=== PATIENT | female | born 1930 | race Caucasian/White ===

== ENCOUNTER 2016-05-25 22:53 | Emergency (ER) | payer MEDICARE ==
--- NOTE | 2016-05-25 23:45 | PHYS DOC ---
General Chief Complaint: MECHANICAL FALL Stated Complaint: FALL Time Seen by MD: 23:38 Source: patient, family, EMS Problems: History of Present Illness Initial Comments Patient here by EMS with daughter from detention for fall. As best we understanding, the patient was barely trying to get up and fell between her bed and the wall. The fall was not witnessed. It's unknown if she had any seizure activity loss of consciousness or incontinence. The patient doesn't believe that she did. She was unable to get up by herself and with assistance arrived, she was subsequently transported here for further care. Patient denies any antecedent symptoms of chest pain, shortness of breath, arrhythmia symptoms, change in vision or speech, or focal extremity or neurologic complaints. At this time, she's complained of pain over the left shoulder only. She has no headache. There's no vision or speech changes. She denies any neck or back pain. She has no chest pain or shortness of breath. There is no nausea vomiting or abdominal pain. There is no change amount or bladder habits no calmness. She denies any other focal extremity or neurologic complaints except as previously described. Patient normally gets up in her room without a walker, but uses a walker for any longer distances. As best we can tell this time, this seems to be a mechanical fall with the patient apparently slipped off the bed rather than a vertiginous, TIA, or syncopal type episode. Other than being brought here today by EMS for care there's been nothing done for this prior to arrival in the ER no fractures noted increase or decrease in symptoms the patient might have. Patient's past medical history is remarkable for dementia, diabetes, hypertension, hearing loss, and vision loss. She is a nonsmoker and nonuser user of ethanol. As noted, she lives in a local nursing facility. Her daughter believes her tetanus to be up-to-date. Allergies: Coded Allergies: No Known Drug Allergies (Unverified , 11/01/15) Past Medical History Medical History: dementia, diabetes, hypertension, other Social History Smoker: non-smoker Alcohol: none Review of Systems All Other Systems: Reviewed and Negative Physical Exam General Appearance: WD/WN, no apparent distress Eyes: bilateral eye EOMI, bilateral eye PERRL, bilateral eye normal inspection Ear, Nose, Throat: normal pharynx, other Neck: full range of motion, supple, normal inspection Respiratory: lungs clear, normal breath sounds, no respiratory distress Cardiovascular: regular rate, rhythm, no edema Gastrointestinal: non tender, soft, no organomegaly Back: no CVA tenderness, no vertebral tenderness Extremities: normal inspection, other Neurologic/Psychiatric: automation tender II-XII nml as tested, no motor/sensory deficits, alert, normal mood/affect Skin: normal color Lymphatic: no adenopathy Comments Generally this is an elderly white female in no acute distress. Vitals are as noted. Pertinent signs on physical exam shows the patient to have about a 2 cm diagonally oriented laceration of the right upper lip towards the midline. This does not appear to be through and through. The facial bones themselves appear to be stable. Pupils are equal reactive light accommodation. Extra ocular movements are intact. Ears and throat are clear. There is some dried red blood in the nares. The nose itself is nontender without deformities or step-offs. There is no active nosebleed. Neck shows no focal tenderness. There is no signs of trauma no tenderness about the cervical spine or the paraspinal regions. Chest is clear cardiovascular exam shows regular rate and rhythm without murmur. The abdomen is soft and nontender. Back shows no CVA tenderness. There is no signs of trauma and no bony vertebral pain. Externally show no rashes, sinus, or edema. Patient complains of pain diffusely about the left shoulder. There is no gross swelling or signs of trauma, no gross deformity noted. There is no distal motor sensory or vascular deficits noted within the left upper extremity. Neurologic exam finds the patient awake alert oriented to person only. This is baseline per daughter. Cranial nerves II through XII appear to be grossly intact. Strength 5 over 5 equal all sites tested, with some difficulty with testing due to lack of comprehension or hearing loss. There are no gross sensory deficits appreciated. She is initially not ambulated in the ED. Remainder of physical exam is clinically unremarkable. Orders, Labs, Meds Old charts note no prior ER visits within the current system. X-rays the left shoulder show an impacted fracture humeral head with some displacement of the lateral fragment per the emergency physician. CT scan of the head and maxillofacial bones per radiology shows chronic changes but no acute intracranial process. There is no definite facial fracture seen. CT of the cervical spine per radiology shows some mild degenerative disease, especially at C3-C4. There is no acute changes. 0135 Patient resting comfortably in the ED. I had discussed with the patient's daughter the need for wound closure. She voiced understanding. Given the patient 's dementia, she will probably be moving her head and moving her hands quite actively according the daughter, so after discussions determined to go ahead and sedate the patient very gently with some Versed. Following 1.5 mg of Versed , the patient was judged to be properly sedated. She was still respond to voice but was sleeping quite comfortably. Using sterile technique and 1% lidocaine without epinephrine anesthesia, the lip laceration was copiously irrigated with normal saline. Explored to find skin and subcutaneous tissue involvement only. It was fairly deep, but fourthly laceration is not through and through and there is no intraoral lesions. Lacerations, closed deeply with 2 sutures of 4-0 Vicryl to reapproximate the edges. Externally, the vermilion borders were approximated with a single suture of 4-0 nylon, and for additional sutures of 4- 0 nylon were used to close the remainder of the wound inferiorly towards the mucosa. Cosmetic result appears acceptable at this time. I discussed with the daughter home care of the laceration back to the detention. We'll advise him to keep it clean with soap and water, they can apply Vaseline to the area as needed for patient comfort, and advises that she have clear liquids for the next 48 hours to prevent any particular matter from kitchen in the wound. Sutures come out in about 5-7 days. While we're irrigating the wound, we will carefully use gauze to make sure that the patient did not aspirate fluids and also were aggressive suctioning. These were witnessed by the daughter. I did explain that there is a small risk of aspiration, and we'll ask the detention also to wash out closely for signs of respiration distress. Daughter is very familiar with this and says the patient is aspirating food on previous occasions. She voices understanding of this risk. We also discussed the impacted fracture of the left humeral head. At this time we'll treat the stricken with a sling. The patient barely had a previous fracture of the right shoulder with total shoulder replacement, and really did not do well, and the daughter would not like to have surgery on the patient from the left side. Provided reassurance that often this is a nonsurgical fracture, but the last follow-up with orthopedics in several days' time for recheck. She voices understanding of this caution as well. She would like us to prescribe the patient's medication for pain. We'll give her dose here as well as a prescription for Lortab elixir there is no. We'll also give her an initial dose of Augmentin here and Augmentin for home to rule out wound infection of a wound it's likely contaminate with saliva. Daughter voiced understanding these follow- up instructions, as well as the need to return to the ER sooner as needed for worsening anyway. There are is extremely medically aware and I think will continue to supervise excellent care of the patient at the nursing facility. Patient herself looks comfortable, in no acute discomfort distress, with her laceration closed is splinting applied to her left upper extremity, and okay for discharge back to her nursing facility. MARIANA PALMA MD May 25, 2016 23:45
--- NOTE | 2016-05-26 00:33 | RAD ---
CT head and cervical spine: Fall with head and neck pain. Axial imaging through the brain and cervical spine was performed without contrast. Sagittal and coronal reformations were also performed. PQRS STATEMENT One or more of the following individualized dose reduction techniques were utilized for this study: 1.Automated exposure control. 2.Adjustment of the mA and/orkVaccording to patient size. 3.Use of iterative reconstruction technique. No prior studies available for comparison. CT brain: The ventricles and sulci are consistent with the patient's age. There is significant periventricular hypodensity noted consistent with senescent change. No sulcal effacement is seen. No midline shift is identified. No acute intra-axial or extra-axial hemorrhage is detected. The cisterns are patent. There appears to be some gas in the left pre maxillary soft tissues. No definite fracture is seen however. Impression: Chronic and senescent changes. No acute intracranial process is detected. There is mucosal thickening of the paranasal sinuses and gas in the left pre maxillary soft tissues. No definite facial fracture is seen however. CT cervical spine: Curvature is normal. Minimal retrolisthesis C3 on C4 is noted. There is C3-4 degenerative disc disease noted. No fractures are identified. The odontoid is intact. The prevertebral tissues are normal. Impression: No acute bony abnormality is detected. Electronically signed by: Rajan Mahajan MD (May 26, 2016 00:31:34)
--- NOTE | 2016-05-26 00:35 | RAD ---
CT facial bones without contrast Indication: Fall with facial abrasions. Axial imaging through the facial bones was performed with without contrast. Sagittal and coronal reformations were also performed. PQRS STATEMENT One or more of the following individualized dose reduction techniques were utilized for this study: 1.Automated exposure control. 2.Adjustment of the mA and/orkVaccording to patient size. 3.Use of iterative reconstruction technique. The mandible appears intact. The zygomatic arches are intact. There is mucosal thickening involving bilateral maxillary sinuses but maxillary sinus zavala appear to be intact. There is some gas in the left pre maxillary soft tissues, suggestive of a laceration. The nasal bones are intact. The orbital zavala appear to be intact. There is opacification of multiple ethmoid air cells and mucosal thickening of the sphenoid sinus. Impression: The left pre maxillary soft tissue gas suggestive of a laceration. No facial bone fracture is detected. Electronically signed by: Rajan Mahajan MD (May 26, 2016 00:34:12)
[2016-05-26] MEDS ORDERED: ONDANSETRON PF 4 MG/2 ML VIAL. IV ONE (01:00)
[2016-05-26] MEDS ORDERED: MIDAZOLAM HCL 5 MG/5 ML VIAL ONE (01:02)
[2016-05-26] MEDS ORDERED: LIDOCAINE 1% Multi-Dose 20 ML VIAL. ONE (01:06)
[2016-05-26 01:30] VITALS: BP 156/77
[2016-05-26] MEDS ORDERED: ONDANSETRON PF 4 MG/2 ML VIAL. ONE (01:38)
[2016-05-26] MEDS ORDERED: AMOXICILLIN/K CLAV 875/125MG TABLET. PO ONE (02:00)
[2016-05-26] MEDS ORDERED: HYDROcodon/APAP 7.5/325MG ORAL 15 ML SOLUTION PO ONE (02:00)
[2016-05-26] MEDS ORDERED: MIDAZOLAM HCL 5 MG/5 ML VIAL IV ONE (02:15)
[2016-05-26] MEDS ORDERED: LIDOCAINE 1% Multi-Dose 20 ML VIAL. IJ ONE (02:30)
--- NOTE | 2016-05-26 07:17 | RAD ---
Left shoulder, 3 views, 05/26/2016: History: Injury The bony structures are demineralized. There is an impacted fracture of the left humeral neck. The fracture lines involving the lateral aspect of the humeral head. No shoulder dislocation is evident. There is mild underlying degenerative change at the shoulder. IMPRESSION: 1. Demineralization. 2. Acute fracture of the left humeral head/neck.
== END 2016-05-26 02:40 | disposition home or self-care (01) ==
LOC: ER 22:55
DX: S42.292A Other displaced fracture of upper end of left humerus, initial encounter for closed fracture (principal); S01.511A Laceration without foreign body of lip, initial encounter; E11.9 Type 2 diabetes mellitus without complications; F03.90 Unspecified dementia, unspecified severity, without behavioral disturbance, psychotic disturbance, mood disturbance, and anxiety; I10 Essential (primary) hypertension; W06.XXXA Fall from bed, initial encounter; Y93.89 Activity, other specified; Y99.8 Other external cause status; Y92.89 Other specified places as the place of occurrence of the external cause
CPT/HCPCS: 40650; 70450; 70486; 72125; 73030; 96374; 99285; J2250; J2405; 99152; 99153

== ENCOUNTER → 2016-06-08 | Outpatient (CLI) | payer MEDICARE ==
[2016-05-26 01:30] VITALS: BP 156/77
--- NOTE | 2016-06-08 14:56 | RAD ---
Indication follow-up fracture. AP Y and axillary views of the left shoulder were obtained and are compared to a study 2 weeks earlier. Comminuted fracture involving the humeral neck and head is noted. Fracture fragments are somewhat displaced and rotated. Fracture lines are better defined than on the previous exam. There is widening between the acromion and humeral head fragment suggesting an associated hemarthrosis.
== END | disposition home or self-care (01) ==
LOC: DXRAD 14:02
PROVIDERS: ATTEND Orthopaedic Surgery
DX: S42.92XD Fracture of left shoulder girdle, part unspecified, subsequent encounter for fracture with routine healing (principal); X58.XXXD Exposure to other specified factors, subsequent encounter
CPT/HCPCS: 73030

== ENCOUNTER → 2016-06-15 | Outpatient (CLI) | payer MEDICARE ==
[2016-05-26 01:30] VITALS: BP 156/77
--- NOTE | 2016-06-15 14:11 | RAD ---
Indication: Humerus fracture, recheck. Time of exam 1346 hours. Comparison is made with shoulder radiographs from 06/08/2016. The comminuted impacted fracture through the proximal humerus is again noted. There is slight medial displacement of the distal fracture fragment, similar to prior exam. The humeral head appears to maintain normal alignment with the glenoid. Acromioclavicular alignment is normal. Impression: Stable comminuted impacted fracture of the proximal humerus when compared with examination one week earlier. Fracture lines remain clearly visible.
== END | disposition home or self-care (01) ==
LOC: DXRAD 13:26
PROVIDERS: ATTEND Orthopaedic Surgery
DX: S42.202D Unspecified fracture of upper end of left humerus, subsequent encounter for fracture with routine healing (principal); X58.XXXD Exposure to other specified factors, subsequent encounter
CPT/HCPCS: 73060

== ENCOUNTER 2019-05-15 19:43 | Emergency (ER) | payer MEDICARE ==
[~2019-05-15] VITALS: Ht 160 cm; Wt 77.4 kg
[2019-05-15] MEDS ORDERED: IPRATRPIUM/ALBUTEROL 0.5/2.5MG 3 ML NEBU. NEB ONE (20:15)
--- NOTE | 2019-05-15 20:17 | PHYS DOC ---
Past History Past Medical History: Diabetes, GERD, Hypertension, UTI, Other Additional Past Medical Histor: hypokalemia, dysphagia Past Surgical History: Other Additional Past Surgical Histo: right shoulder surgery Alcohol Use: None Drug Use: None Adult General Chief Complaint Chief Complaint: COUGH HPI HPI Patient is an 88-year-old demented female from the alf who presents with cough, wheezing and a low-grade fever at the alf. She's been eating drinking voiding and stooling normally. She has not been around anybody sick. Patient is unable to provide any history secondary to dementia.] Review of Systems Review of Systems Review of systems is unobtainable secondary to dementia.. Current Medications Current Medications Current Medications Medications (Trade) Dose Ordered Sig/Yasmany Start Time Stop Time Status Last Admin Dose Admin Albuterol/ Ipratropium (Duoneb) 3 ml 1X ONCE 05/15/19 20:15 05/15/19 20:16 Allergies Allergies Allergies Coded Allergies Type Severity Reaction Last Updated Verified No Known Drug Allergies 11/01/15 No Physical Exam Physical Exam Constitutional: Well developed, well nourished, no acute distress, non-toxic appearance. [] HENT: Normocephalic, atraumatic, bilateral external ears normal, oropharynx moist, no oral exudates, nose normal. [] Eyes: PERRLA, EOMI, conjunctiva normal, no discharge. [] Neck: Normal range of motion, no tenderness, supple, no stridor. [] Cardiovascular:Heart rate regular rhythm, no murmur [] Lungs & Thorax: Very mild apical wheezes no rales[] Abdomen: Bowel sounds normal, soft, no tenderness, no masses, no pulsatile masses. [] Skin: Warm, dry, no erythema, no rash. [] Back: No tenderness, no CVA tenderness. [] Extremities: No tenderness, no cyanosis, no clubbing, ROM intact, no edema. [] Neurologic: Alert to self, normal motor function, normal sensory function, no focal deficits noted. [] Psychologic: Pleasant confused affect. [] Current Patient Data Vital Signs Vital Signs Date Time Temp Pulse Resp B/P (MAP) Pulse Ox O2 Delivery O2 Flow Rate FiO2 05/15/19 19:43 98.4 89 22 131/65 (87) 94 Room Air EKG EKG [] Radiology/Procedures Radiology/Procedures [] Impressions: PROCEDURE: CHEST AP ONLY CHEST AP ONLY 05/15/2019 8:06 PM INDICATION: Cough, fever COMPARISON: 04/28/2012 TECHNIQUE: Portable frontal view of the chest is provided. FINDINGS: The cardiomediastinal silhouette is similar in appearance. Medial left basilar opacity may represent subsegmental atelectasis versus infiltrate. Right shoulder arthroplasty is present. Chronic remodeling of the proximal left humerus may reflect prior traumatic injury. There are no significant pleural effusions. There is no pulmonary vascular congestion. No pneumothorax. IMPRESSION: Opacity in the medial left lung base may represent subsegmental atelectasis versus infiltrate. Low lung volumes. Course & Med Decision Making Course & Med Decision Making ED course: Evaluation reveals a healthy-appearing 88-year-old demented female from the alf. She was given 1 DuoNeb in the department which completely alleviated her symptoms. I do not believe this patient warrants testing for the novel coronavirus. She is safe to go back to the alf at this point in stay isolated as much as possible. Pertinent Labs and Imaging studies reviewed. (See chart for details) [] Dragon Disclaimer Dragon Disclaimer This electronic medical record was generated, in whole or in part, using a voice recognition dictation system. Departure Departure: Impression: Primary Impression: Viral upper respiratory illness Disposition: 01 HOME, SELF-CARE Condition: STABLE Referrals: SARAH AGUIRRE MD (PCP) Patient Instructions: Upper Respiratory Infection, Adult Scripts Azithromycin (AZITHROMYCIN TABLET) 250 Mg Tablet 1 PKG PO UD for bronchitis, #6 TAB Take 2 tablets today and then one tablet every day thereafter for the next 4 days Prov: ZEN ESPAÑA DO 05/15/19 ZEN ESPAÑA DO May 15, 2019 20:17
[2019-05-15 20:38] LABS: BASO # 0.1 x10^3/uL (0.0-0.2); BASO % 1 % (0-3); EOS # 0.3 x10^3/uL (0.0-0.7); EOS % 3 % (0-3); HEMATOCRIT 40.9 % (36.0-47.0); HEMOGLOBIN 13.5 g/dL (12.0-15.5); LYMPH # 1.1 x10^3/uL (1.0-4.8); LYMPH % 13 % (24-48); MEAN CORPUSCULAR HEMOGLOBIN 27 pg (25-35); MEAN CORPUSCULAR HGB CONC 33 g/dL (31-37); MEAN CORPUSCULAR VOLUME 83 fL (79-100); MONO # 0.7 x10^3/uL (0.0-1.1); MONO % 9 % (0-9); NEUT % 74 % (31-73); PLATELET COUNT 259 x10^3/uL (140-400); RED BLOOD COUNT 4.95 x10^6/uL (3.50-5.40); RED CELL DISTRIBUTION WIDTH 16.4 % (11.5-14.5); WHITE BLOOD COUNT 8.1 x10^3/uL (4.0-11.0)
--- NOTE | 2019-05-15 20:49 | RAD ---
CHEST AP ONLY 05/15/2019 8:06 PM INDICATION: Cough, fever COMPARISON: 04/28/2012 TECHNIQUE: Portable frontal view of the chest is provided. FINDINGS: The cardiomediastinal silhouette is similar in appearance. Medial left basilar opacity may represent subsegmental atelectasis versus infiltrate. Right shoulder arthroplasty is present. Chronic remodeling of the proximal left humerus may reflect prior traumatic injury. There are no significant pleural effusions. There is no pulmonary vascular congestion. No pneumothorax. IMPRESSION: Opacity in the medial left lung base may represent subsegmental atelectasis versus infiltrate. Low lung volumes. Electronically signed by: Delores Matamoros MD (05/15/2019 8:46 PM) [facility]
[2019-05-15 20:55] LABS: ALBUMIN 3.1 g/dL (3.4-5.0); ALBUMIN/GLOBULIN RATIO 0.9 (1.0-1.7); CALCIUM 8.9 mg/dL (8.5-10.1); CREATININE 0.9 mg/dL (0.6-1.0); GFR 59.1; POTASSIUM 4.2 mmol/L (3.5-5.1); TOTAL BILIRUBIN 0.1 mg/dL (0.2-1.0); TOTAL PROTEIN 6.5 g/dL (6.4-8.2)
[2019-05-15] MEDS ORDERED: AZIT250T6 PO (21:11)
[2019-05-15 21:19] VITALS: BP 116/63
--- NOTE | 2019-05-15 21:59 | EKG ---
[address] [address] Test Date: 2019-05-15 Test Time: 20:17:19 Pat Name: SHASHANK GARSIA Department: Room: Gender: F [employer]: : 1930 Requested By: ZEN ESPAÑA Order Number: [id number] Reading MD: Bucky Mondragon MD Measurements Intervals [place] Rate: 87 P: -26 [place]: 200 QRS: -25 QRSD: 88 T: -3 QT: 362 QTc: 436 Interpretive Statements SINUS RHYTHM CONSIDER INFERIOR INFARCT Electronically Signed On 05-16-2019 9:38:29 CDT by Bucky Mondragon MD
== END 2019-05-15 21:45 | disposition home or self-care (01) ==
LOC: ER 19:43
DX: J06.9 Acute upper respiratory infection, unspecified (principal); B97.89 Other viral agents as the cause of diseases classified elsewhere; E11.9 Type 2 diabetes mellitus without complications; K21.9 Gastro-esophageal reflux disease without esophagitis; I10 Essential (primary) hypertension; Z87.440 Personal history of urinary (tract) infections
CPT/HCPCS: 36415; 71045; 80053; 83880; 84484; 85025; 93005; 94640; 99285-25

== ENCOUNTER 2019-11-30 06:27 | Inpatient (IN) | payer MEDICARE ==
[~2019-11-30] VITALS: Ht 160 cm; Wt 77.0 kg
[~2019-11-30 06:27] MED LIST: AZIT250T6 PO
--- NOTE | 2019-11-30 06:52 | PHYS DOC ---
Past History Past Medical History: Asthma, Dementia, Depression, Diabetes, GERD, Hypertension, UTI, Other Additional Past Medical Histor: hypokalemia, dysphagia Past Surgical History: Other Additional Past Surgical Histo: right shoulder surgery Alcohol Use: None Drug Use: None General Adult EDM: Chief Complaint: cough, short of air HPI: HPI: Patient is an 89 year old female who presents for evaluation of shortness of air cough and congestion. Symptoms have been rapidly worsening over the past 24 hours. At her nursing facility she had sats at 85% overnight. Staff stated they had difficulty keeping her oxygen sats above 90%. Patient had an x-ray done as an outpatient which showed congestive heart failure. Dr. Aguirre is her physician. Covid testing less than 48 hours ago was negative. Current sats are 92% with mild to early moderate labored breathing in triage. Blood pressure stable. Patient is here with her daughter who is her medical power of sports attorney. Patient unable provide a history herself as she has Alzheimer's disease. Eugenio chadwick states patient is to be DNR Review of Systems: Review of Systems: Constitutional: Denies fever or chills Eyes: Denies change in visual acuity HENT: has nasal congestion Respiratory: has cough and shortness of breath Cardiovascular: Denies chest pain has edema GI: Denies abdominal pain, nausea, vomiting, bloody stools or diarrhea : Denies dysuria Musculoskeletal: Denies back pain or joint pain Integument: Denies rash Neurologic: Denies headache, focal weakness or sensory changes Endocrine: Denies polyuria or polydipsia Lymphatic: Denies swollen glands Psychiatric: has depression and anxiety Current Medications: Current Meds: Current Medications Medications (Trade) Dose Ordered Sig/Yasmany Start Time Stop Time Status Last Admin Dose Admin Furosemide (Lasix) 40 mg 1X ONCE 11/30/19 07:00 11/30/19 07:01 Allergies: Allergies: Allergies Coded Allergies Type Severity Reaction Last Updated Verified No Known Drug Allergies 11/01/15 No Physical Exam: PE: Constitutional: Well developed, well nourished, mild to moderate acute distress. [] HENT: Normocephalic, atraumatic, bilateral external ears normal, oropharynx moist, no oral exudates, nose normal. [] Eyes: PERRL, EOMI, conjunctiva normal, no discharge. [] Neck: Normal range of motion, no tenderness, supple. [] Cardiovascular:Heart rate regular rhythm, murmur [] Lungs & Thorax: Bilateral breath sounds diminished with rales and wheezing present, symmetric sounds [] Abdomen: Bowel sounds normal, soft, no tenderness. [] Skin: Warm, dry, no erythema, no rash. [] Back: No tenderness. [] Extremities: No tenderness, no cyanosis, ROM intact, edema. [] Neurologic: Alert and oriented to person only, normal motor function, normal sensory function, no focal deficits noted. [] Psychologic: Affect abnormal, judgement abnormal, mood abnormal. [] EKG: EKG: EKG shows normal sinus rhythm, rate 94, left axis deviation, inverted T wave lead III, otherwise unremarkable EKG, not STEMI [] Radiology/Procedures: Radiology/Procedures: [address] [address] IMAGING REPORT Signed PATIENT: SHASHANK GARSIA ACCOUNT: [id number] : 1930 LOCATION: ER AGE: 89 SEX: F EXAM STATUS: REG ER ORD. PHYSICIAN: STAN CREWS DO REASON: short of air PROCEDURE: PORTABLE CHEST 1V AP chest. HISTORY: Short of air AP view was taken of the chest. There is a large hiatus hernia. Heart is enlarged. Patient's taken a poor inspiration. Density at the left costophrenic angle could be atelectasis or infiltrate or an epicardial fat pad. No other infiltrates are noted. IMPRESSION: 1. Large hiatus hernia. 2. Nonspecific density at the left costophrenic angle. 3. No other infiltrates. Electronically signed by: Dejon Khan MD (11/30/2019 7:07 AM) [id number] DICTATED AND SIGNED BY: DEJON KHAN MD DATE: 11/30/19 0707 CC: SARAH AGUIRRE MD; STAN CREWS DO ~ [] Heart Score: Risk Factors: Risk Factors: DM, Current or recent (<one month) smoker, HTN, HLP, family history of CAD, obesity. Risk Scores: Score 0 - 3: 2.5% MACE over next 6 weeks - Discharge Home Score 4 - 6: 20.3% MACE over next 6 weeks - Admit for Clinical Observation Score 7 - 10: 72.7% MACE over next 6 weeks - Early Invasive Strategies Course & Med Decision Making: Course & Med Decision Making Pertinent Labs and Imaging studies reviewed. (See chart for details) [] Dragon Disclaimer: Dragon Disclaimer: This electronic medical record was generated, in whole or in part, using a voice recognition dictation system. 0808 Case was discussed with Dr. Aguirre. Patient will be admitted for stabilization. Dose of IV Lasix 40 mg given. Patient also started on IV Rocephin 1 g. Blood cultures were collected. Current O2 sats 92% patient has mild to moderate labored breathing. Recent Covid swab less than 48 hours old was negative. Departure Departure: Impression: Primary Impression: Acute bronchitis Qualified Codes: J20.9 - Acute bronchitis, unspecified Additional Impressions: Hypoxia Acute congestive heart failure Qualified Codes: I50.9 - Heart failure, unspecified Disposition: 09 ADMITTED INPT THIS HOSP Admitting Physician: Sarah Aguirre Condition: STABLE Referrals: SARAH AGUIRRE MD (PCP) STAN CREWS DO Nov 30, 2019 06:52
[2019-11-30] MEDS ORDERED: FUROSEMIDE 40 MG/4 ML VIAL IVP ONE ×2 (07:00→13:15)
--- NOTE | 2019-11-30 07:10 | RAD ---
AP chest. HISTORY: Short of air AP view was taken of the chest. There is a large hiatus hernia. Heart is enlarged. Patient's taken a poor inspiration. Density at the left costophrenic angle could be atelectasis or infiltrate or an epicardial fat pad. No other infiltrates are noted. IMPRESSION: 1. Large hiatus hernia. 2. Nonspecific density at the left costophrenic angle. 3. No other infiltrates. Electronically signed by: Dejon Khan MD (11/30/2019 7:07 AM) [id number]
[2019-11-30] MEDS ORDERED: cefTRIAXone SODIUM 1 GM VIAL ONE (07:38)
[2019-11-30] MEDS ORDERED: IV NORMAL SALINE 50ML 50 ML ONE (07:38)
[2019-11-30 07:42] LABS: BASO # 0.1 x10^3/uL (0.0-0.2); BASO % 1 % (0-3); EOS # 0.3 x10^3/uL (0.0-0.7); EOS % 4 % (0-3); HEMATOCRIT 40.2 % (36.0-47.0); HEMOGLOBIN 12.8 g/dL (12.0-15.5); LYMPH # 0.9 x10^3/uL (1.0-4.8); LYMPH % 11 % (24-48); MEAN CORPUSCULAR HEMOGLOBIN 27 pg (25-35); MEAN CORPUSCULAR HGB CONC 32 g/dL (31-37); MEAN CORPUSCULAR VOLUME 84 fL (79-100); MONO # 0.7 x10^3/uL (0.0-1.1); MONO % 9 % (0-9); NEUT # 6.2 x10^3uL (1.8-7.7); NEUT % 76 % (31-73); PLATELET COUNT 297 x10^3/uL (140-400); RED BLOOD COUNT 4.81 x10^6/uL (3.50-5.40); RED CELL DISTRIBUTION WIDTH 15.5 % (11.5-14.5); WHITE BLOOD COUNT 8.2 x10^3/uL (4.0-11.0)
[2019-11-30 07:48] LABS: CALCIUM 9.5 mg/dL (8.5-10.1); CREATININE 1.1 mg/dL (0.6-1.0); GFR 46.8; POTASSIUM 3.9 mmol/L (3.5-5.1)
[2019-11-30 08:00] LABS: ALBUMIN 3.1 g/dL (3.4-5.0); ALBUMIN/GLOBULIN RATIO 0.7 (1.0-1.7); TOTAL BILIRUBIN 0.3 mg/dL (0.2-1.0); TOTAL PROTEIN 7.6 g/dL (6.4-8.2)
[2019-11-30] MEDS ORDERED: methylPREDNISolone SOD SUCC PF 125 MG/2 ML VIAL. IV ONE (08:15)
[2019-11-30] MEDS ORDERED: AZITHROMYCIN 500 MG in IV NORMAL SALINE 250ML 250 ML IV ONE ×2 (08:15→10:15)
[2019-11-30] MEDS ORDERED: ONDANSETRON PF 4 MG/2 ML VIAL. IVP PRN (08:15)
[2019-11-30 09:20] VITALS: BP 132/83
[2019-11-30] MEDS ORDERED: IPRA3AMP29 NEB (09:30)
[2019-11-30] MEDS ORDERED: BUPR100T7 PO (09:30)
[2019-11-30] MEDS ORDERED: [UNRECOGNIZED DRUG - CODE] PO (09:30)
[2019-11-30] MEDS ORDERED: LOPE2CAP PO (09:30)
[2019-11-30] MEDS ORDERED: MV,1TABL3 PO (10:47)
[2019-11-30] MEDS ORDERED: TRAZ-120 PO (10:47)
[2019-11-30] MEDS ORDERED: MEMA10TA PO (10:47)
[2019-11-30] MEDS ORDERED: AMLO-186 PO (10:47)
[2019-11-30] MEDS ORDERED: DONE10TA7 PO (10:47)
[2019-11-30] MEDS ORDERED: PRAV20TA2 PO (10:47)
[2019-11-30] MEDS ORDERED: CELE100C PO (10:47)
[2019-11-30] MEDS ORDERED: ZOLP5TAB PO (10:47)
[2019-11-30] MEDS ORDERED: ACET500T68 PO (10:47)
[2019-11-30] MEDS ORDERED: FURO-68 PO (10:47)
[2019-11-30] MEDS ORDERED: MELA3TAB43 PO (10:47)
[2019-11-30] MEDS ORDERED: VIT1TABL43 PO (10:47)
[2019-11-30] MEDS ORDERED: POTA10TA17 PO (10:47)
[2019-11-30] MEDS ORDERED: METF500T16 PO (10:47)
--- NOTE | 2019-11-30 10:55 | EKG ---
[address] [address] Test Date: 2019-11-30 Test Time: 06:47:56 Pat Name: SHASHANK GARSIA Department: Room: 111 A Gender: F Financial Service Professional: HELEN : [id number] Requested By: STAN CREWS Order Number: [id number] Reading MD: Jin Mckeon Measurements Intervals [place] Rate: 94 P: -25 [place]: 200 QRS: -29 QRSD: 92 T: 3 QT: 350 QTc: 443 Interpretive Statements SINUS RHYTHM LEFTWARD AXIS QRS(T) CONTOUR ABNORMALITY CONSISTENT WITH INFERIOR INFARCT PROBABLY OLD ABNORMAL ECG Electronically Signed On 12-12-2019 12:40:50 ADHESIVE BANDAGE MAKING OPERATOR by Jin Mckeon
[2019-11-30] MEDS ORDERED: IPRATRPIUM/ALBUTEROL 0.5/2.5MG 3 ML NEBU. NEB PRN (13:15)
[2019-11-30] MEDS ORDERED: ZOLPIDEM 5 MG TABLET. PO PRN (13:15)
[2019-11-30] MEDS ORDERED: LOPERAMIDE 2 MG CAPSULE PO PRN (13:15)
[2019-11-30] MEDS: MULTIVITAMIN with MINERAL TABLET. PO SCH (14:41)
[2019-11-30] MEDS: amLODIPine BESYLATE 5 MG TABLET PO SCH (14:41)
[2019-11-30 15:17] VITALS: BP 116/76
[2019-11-30 15:27] LABS: BILIRUBIN,URINE NEG (NEG); CLARITY,URINE CLEAR; COLOR,URINE COLORLESS; GLUCOSE,URINE NEG (NEG); UROBILINOGEN,URINE 0.2 mg/dL (0.2 mg/dL)
[2019-11-30 15:28] LABS: BACTERIA,URINE 0 /HPF (0-FEW); NITRITE,URINE NEG (NEG)
[2019-11-30] MEDS: MEMANTINE 5 MG TABLET. PO SCH (20:32)
[2019-11-30] MEDS: buPROPion SR 100 MG TABLET.SA. PO SCH (20:32)
[2019-11-30] MEDS: MELATONIN 3 MG TABLET PO SCH (20:32)
[2019-11-30] MEDS: POTASSIUM CITRATE 10 MEQ TABLET.ER PO SCH (20:32)
[2019-11-30] MEDS: traZODone 50 MG TABLET. PO SCH (20:32)
[2019-11-30] MEDS: ATORVASTATIN CALCIUM 10 MG TABLET. PO SCH (20:32)
[2019-11-30] MEDS: DONEPEZIL HCL 10 MG TABLET PO SCH (20:32)
[2019-11-30] MEDS: NYSTATIN TOPICAL POWDER 15GM BOTTLE. TP SCH (20:33)
[2019-11-30 20:46] VITALS: BP 111/73
[2019-11-30 23:28] VITALS: BP 105/67
[2019-12-01 06:08] VITALS: BP 138/87
[2019-12-01 06:55] LABS: BASO % 0 % (0-3); EOS % 0 % (0-3); HEMOGLOBIN 12.8 g/dL (12.0-15.5); LYMPH # 0.8 x10^3/uL (1.0-4.8); LYMPH % 6 % (24-48); MEAN CORPUSCULAR HEMOGLOBIN 27 pg (25-35); MEAN CORPUSCULAR HGB CONC 32 g/dL (31-37); MEAN CORPUSCULAR VOLUME 83 fL (79-100); MONO # 0.6 x10^3/uL (0.0-1.1); MONO % 4 % (0-9); NEUT # 12.5 x10^3uL (1.8-7.7); NEUT % 90 % (31-73); PLATELET COUNT 317 x10^3/uL (140-400); RED BLOOD COUNT 4.83 x10^6/uL (3.50-5.40); WHITE BLOOD COUNT 13.9 x10^3/uL (4.0-11.0)
[2019-12-01 06:59] LABS: CREATININE 1.1 mg/dL (0.6-1.0); GFR 46.8; POTASSIUM 3.5 mmol/L (3.5-5.1)
[2019-12-01] MEDS: LACTASE 3,000 UNIT TABLET PO SCH (08:03)
[2019-12-01] MEDS: MULTIVITAMIN with MINERAL TABLET. PO SCH (08:04)
[2019-12-01] MEDS: POTASSIUM CITRATE 10 MEQ TABLET.ER PO SCH ×2 (08:04→20:44)
[2019-12-01] MEDS: AZITHROMYCIN 250 MG TABLET. PO SCH (08:04)
[2019-12-01] MEDS: amLODIPine BESYLATE 5 MG TABLET PO SCH (08:05)
[2019-12-01] MEDS: buPROPion SR 100 MG TABLET.SA. PO SCH ×2 (08:05→20:44)
[2019-12-01] MEDS: MEMANTINE 5 MG TABLET. PO SCH ×2 (08:06→20:44)
[2019-12-01] MEDS: FUROSEMIDE 40 MG/4 ML VIAL IVP SCH (08:08)
[2019-12-01] MEDS: NYSTATIN TOPICAL POWDER 15GM BOTTLE. TP SCH ×2 (08:13→21:00)
[2019-12-01] MEDS: CELECOXIB 100 MG CAPSULE PO SCH (08:13)
[2019-12-01] MEDS: metFORMIN 500 MG TABLET PO SCH (08:14)
[2019-12-01] MEDS: IPRATRPIUM/ALBUTEROL 0.5/2.5MG 3 ML NEBU. NEB SCH ×3 (09:45→21:00)
[2019-12-01 10:11] VITALS: BP 137/73
[2019-12-01] MEDS ORDERED: ENOXAPARIN 40 MG/0.4 ML SYRINGE. SQ SCH (10:20)
--- NOTE | 2019-12-01 12:58 | HP ---
ADMIT DATE: 11/30/2019 HISTORY OF PRESENT ILLNESS: An 89-year-old female brought in from the skilled nursing. The patient notes there that the nurses note that she is having increased shortness of breath and dyspnea, rapidly worsening. Her oxygen saturation went down to 85% without oxygen and only 90% with. The patient's x-ray outpatient showed congestive heart failure. The patient's COVID test was negative. The patient was brought in for acute exacerbation of chronic congestive heart failure. The patient has severe dementia Alzheimer type and not really able to give much of a history and other than the factual symptoms that we can document. PAST MEDICAL HISTORY: Dementia, Alzheimer's, congestive heart failure, hypertension, asthma, urinary tract infection, incontinence, bursitis, fractures, diabetes, psychiatric problems of insomnia and anemia. FAMILY HISTORY: Unremarkable. ALLERGIES: There are no known drug allergies. SOCIAL HISTORY: Denies smoking, alcohol or drug use and is a DNR. HOME MEDICATIONS: Include azithromycin, donepezil 10, DuoNeb treatments, pravastatin, Norvasc, Celebrex, ____ 100, trazodone, Ambien, Namenda, lactase, loperamide p.r.n., vitamin B, multivitamins and melatonin. REVIEW OF SYSTEMS: The patient otherwise is not able to give any real type of history as she says okay to most everything you asked her. PHYSICAL EXAMINATION: VITAL SIGNS: Her blood pressure is that of 150/60, respiratory rate 24, pulse 96, afebrile and oxygen saturation on 4 liters at 94%. HEENT: The patient is alert, but confused, disoriented. Eyes: PERRL. Mouth and throat: Poor dentition. NECK: Reasonable. LUNGS: Show coarse breath sounds throughout. CARDIOVASCULAR: Regular sinus rhythm. ABDOMEN: Protuberant, soft, nontender. EXTREMITIES: No clubbing, cyanosis, ____ pitting edema. NEUROLOGIC: As noted, alert, but confused, disoriented x 3. LABORATORY DATA: Show white count of 13, hemoglobin 12 and 40. Sodium and potassium 138 and 3.5, BUN and creatinine 27 and 1.1. Blood sugars vacillating between 130-160, albumin 3.1. IMPRESSION: Acute on top of chronic diastolic heart failure, acute on top of chronic respiratory distress, moderate protein malnutrition, Alzheimer dementia type, essential hypertension. PLAN: Continue with diuresis and aggressive pulmonary toilet. SARAH AGUIRRE MD DR: GRETTA/kurt JOB#: [id number] / [id number]
[2019-12-01 15:29] VITALS: BP 130/83
[2019-12-01 20:07] VITALS: BP 129/83
[2019-12-01] MEDS: LACTOBACILLUS RHAMNOSUS GG 1 CAPSULE. PO SCH (20:44)
[2019-12-01] MEDS: MELATONIN 3 MG TABLET PO SCH (20:44)
[2019-12-01] MEDS: DONEPEZIL HCL 10 MG TABLET PO SCH (20:44)
[2019-12-01] MEDS: traZODone 50 MG TABLET. PO SCH (20:44)
[2019-12-01] MEDS: ATORVASTATIN CALCIUM 10 MG TABLET. PO SCH (20:46)
[2019-12-01] MEDS: ACETAMINOPHEN 500 MG TABLET PO PRN (20:46)
[2019-12-01] MEDS: ENOXAPARIN 40 MG/0.4 ML SYRINGE. SQ SCH ×2 (20:47→20:53)
[2019-12-01 22:51] VITALS: BP 121/63
[2019-12-02 05:22] VITALS: BP 142/83
[2019-12-02 07:33] LABS: CALCIUM 8.6 mg/dL (8.5-10.1); CREATININE 0.9 mg/dL (0.6-1.0); POTASSIUM 3.4 mmol/L (3.5-5.1)
[2019-12-02] MEDS: AZITHROMYCIN 250 MG TABLET. PO SCH (08:16)
[2019-12-02] MEDS: LACTOBACILLUS RHAMNOSUS GG 1 CAPSULE. PO SCH ×2 (08:16→20:18)
[2019-12-02] MEDS: metFORMIN 500 MG TABLET PO SCH (08:16)
[2019-12-02] MEDS: MEMANTINE 5 MG TABLET. PO SCH ×2 (08:16→20:17)
[2019-12-02] MEDS: ACETAMINOPHEN 500 MG TABLET PO PRN (08:16)
[2019-12-02] MEDS: amLODIPine BESYLATE 5 MG TABLET PO SCH (08:16)
[2019-12-02] MEDS: MULTIVITAMIN with MINERAL TABLET. PO SCH (08:16)
[2019-12-02] MEDS: buPROPion SR 100 MG TABLET.SA. PO SCH ×2 (08:17→20:18)
[2019-12-02] MEDS: LACTASE 3,000 UNIT TABLET PO SCH (08:17)
[2019-12-02] MEDS: FUROSEMIDE 40 MG/4 ML VIAL IVP SCH (08:17)
[2019-12-02] MEDS: POTASSIUM CITRATE 10 MEQ TABLET.ER PO SCH ×2 (08:18→20:18)
[2019-12-02] MEDS: NYSTATIN TOPICAL POWDER 15GM BOTTLE. TP SCH ×2 (08:18→20:19)
[2019-12-02] MEDS: IPRATRPIUM/ALBUTEROL 0.5/2.5MG 3 ML NEBU. NEB SCH ×3 (10:08→19:53)
[2019-12-02 11:05] VITALS: BP 108/71
--- NOTE | 2019-12-02 11:22 | PN ---
DATE: SUBJECTIVE: An 89-year-old female in with congestive heart failure. The patient is resting fairly comfortably. Her baseline mental status of mild dementia, Alzheimer's type, but she seems even more alert today than she has. The patient is making good progress overall. Trying to get her transferred back to the alf if still take her back on Wednesday, which today is. OBJECTIVE: VITAL SIGNS: Blood pressure 140/80, respiratory rate 20, pulse 90, afebrile. GENERAL: The patient is alert and oriented x 3. Speech fluent, spontaneous, appropriate. LUNGS: Diminished throughout, but clear. CARDIOVASCULAR: Regular sinus rhythm, 1/6 systolic ejection murmur. ABDOMEN: Soft, nontender. EXTREMITIES: No clubbing, cyanosis. Trace edema. PLAN: The patient continued to be monitored. IMPRESSION: Acute on top of chronic diastolic heart failure, moderate protein malnutrition, Alzheimer's dementia type, essential hypertension. SARAH AGUIRRE MD DR: GRETTA/kurt JOB#: [id number] / [id number]
[2019-12-02 14:37] VITALS: BP 90/60
[2019-12-02 14:40] VITALS: BP 90/60
[2019-12-02 19:05] VITALS: BP 130/76
[2019-12-02] MEDS: MELATONIN 3 MG TABLET PO SCH (20:17)
[2019-12-02] MEDS: traZODone 50 MG TABLET. PO SCH (20:17)
[2019-12-02] MEDS: DONEPEZIL HCL 10 MG TABLET PO SCH (20:18)
[2019-12-02] MEDS: ATORVASTATIN CALCIUM 10 MG TABLET. PO SCH (20:18)
[2019-12-02] MEDS: ENOXAPARIN 40 MG/0.4 ML SYRINGE. SQ SCH (20:29)
[2019-12-02 23:07] VITALS: BP 125/77
[2019-12-03] MEDS: IPRATRPIUM/ALBUTEROL 0.5/2.5MG 3 ML NEBU. NEB SCH ×3 (05:08→19:39)
[2019-12-03 05:16] VITALS: BP 137/87
[2019-12-03] MEDS: MULTIVITAMIN with MINERAL TABLET. PO SCH (07:43)
[2019-12-03] MEDS: AZITHROMYCIN 250 MG TABLET. PO SCH (07:43)
[2019-12-03] MEDS: metFORMIN 500 MG TABLET PO SCH (07:43)
[2019-12-03] MEDS: amLODIPine BESYLATE 5 MG TABLET PO SCH (07:43)
[2019-12-03] MEDS: LACTOBACILLUS RHAMNOSUS GG 1 CAPSULE. PO SCH ×2 (07:44→20:50)
[2019-12-03] MEDS: NYSTATIN TOPICAL POWDER 15GM BOTTLE. TP SCH ×2 (07:44→20:51)
[2019-12-03] MEDS: FUROSEMIDE 40 MG/4 ML VIAL IVP SCH (07:44)
[2019-12-03] MEDS: POTASSIUM CITRATE 10 MEQ TABLET.ER PO SCH (07:44)
[2019-12-03] MEDS: MEMANTINE 5 MG TABLET. PO SCH ×2 (07:44→20:50)
[2019-12-03] MEDS: buPROPion SR 100 MG TABLET.SA. PO SCH ×2 (07:47→20:50)
[2019-12-03] MEDS: LACTASE 3,000 UNIT TABLET PO SCH (07:47)
[2019-12-03 10:47] VITALS: BP 128/82
[2019-12-03] MEDS ORDERED: ELECTROLYTE (NON-ICU) PROTOCOL. MC PRN (11:15)
[2019-12-03 13:13] LABS: CALCIUM 8.1 mg/dL (8.5-10.1); CREATININE 1.1 mg/dL (0.6-1.0); GFR 46.8; POTASSIUM 3.3 mmol/L (3.5-5.1)
[2019-12-03] MEDS ORDERED: POTASSIUM CHLORIDE 20 MEQ TABLET.ER. PO ONE (13:30)
[2019-12-03] MEDS ORDERED: POTASSIUM BICARB 20 MEQ EFFERVESCENT TABLET. PO ONE (14:30)
[2019-12-03 14:42] VITALS: BP 105/53
--- NOTE | 2019-12-03 14:56 | RAD ---
Single view chest dated 04/04/2019. Comparison made to 11/30/2019. CLINICAL INDICATION: Cough. FINDINGS: Single upright portable exam performed. Lung volumes are low, limiting evaluation. Heart and mediastinal contours are stable. Lung volumes are low, limiting evaluation. There is some patchy perihilar opacity, similar to slightly increased. No definite pleural effusion or pneumothorax. IMPRESSION: Mild patchy perihilar opacities, somewhat more prominent from prior exam. This could be related to low lung volumes and vascular crowding. Bronchial inflammatory process or atypical pneumonia not excluded. Electronically signed by: Jerod Funk MD (12/03/2019 2:53 PM) [facility]
[2019-12-03 18:53] VITALS: BP 129/78
[2019-12-03] MEDS: DONEPEZIL HCL 10 MG TABLET PO SCH (20:50)
[2019-12-03] MEDS: traZODone 50 MG TABLET. PO SCH (20:50)
[2019-12-03] MEDS: POTASSIUM BICARB 20 MEQ EFFERVESCENT TABLET. PO SCH (20:50)
[2019-12-03] MEDS: MELATONIN 3 MG TABLET PO SCH (20:50)
[2019-12-03] MEDS: ATORVASTATIN CALCIUM 10 MG TABLET. PO SCH (20:51)
[2019-12-03] MEDS: ENOXAPARIN 40 MG/0.4 ML SYRINGE. SQ SCH ×2 (20:51→21:00)
--- NOTE | 2019-12-03 22:12 | PN ---
DATE: SUBJECTIVE: An 89-year-old female. She is in with [id number] chronic congestive heart failure, seems to be doing somewhat better; although, she has a wet cough this morning. Overall, her affect is much more alert, still markedly confused, but much more alert. OBJECTIVE: VITAL SIGNS: Blood pressure 128/82, respiratory rate 18, pulse 99, afebrile, oxygen 2 liters up to 99%. GENERAL: The patient is alert, but confused as noted. LUNGS: Diminished with coarse breath sounds noted. We will get a PA view on her chest x-ray. EXTREMITIES: No clubbing, cyanosis, just trace edema. The patient is otherwise doing quite well. Urine culture is negative. Blood cultures negative. IMPRESSION: [id number] chronic diastolic heart failure, moderate protein malnutrition, Alzheimer's dementia type, essential hypertension. PLAN: As above. SARAH AGUIRRE MD DR: GRETTA/kurt JOB#: [id number] / [id number]
[2019-12-03 23:42] VITALS: BP 130/71
[2019-12-04] MEDS: IPRATRPIUM/ALBUTEROL 0.5/2.5MG 3 ML NEBU. NEB SCH ×2 (04:47→11:51)
[2019-12-04 05:07] VITALS: BP 136/87
[2019-12-04 06:18] LABS: CALCIUM 8.5 mg/dL (8.5-10.1); GFR 52.2; POTASSIUM 3.5 mmol/L (3.5-5.1)
[2019-12-04] MEDS: LACTOBACILLUS RHAMNOSUS GG 1 CAPSULE. PO SCH (08:14)
[2019-12-04] MEDS: AZITHROMYCIN 250 MG TABLET. PO SCH (08:14)
[2019-12-04] MEDS: buPROPion SR 100 MG TABLET.SA. PO SCH (08:14)
[2019-12-04] MEDS: CELECOXIB 100 MG CAPSULE PO SCH (08:14)
[2019-12-04] MEDS: amLODIPine BESYLATE 5 MG TABLET PO SCH (08:14)
[2019-12-04] MEDS: LACTASE 3,000 UNIT TABLET PO SCH (08:15)
[2019-12-04] MEDS: POTASSIUM BICARB 20 MEQ EFFERVESCENT TABLET. PO SCH (08:15)
[2019-12-04] MEDS: MULTIVITAMIN with MINERAL TABLET. PO SCH (08:15)
[2019-12-04] MEDS: MEMANTINE 5 MG TABLET. PO SCH (08:16)
[2019-12-04] MEDS: metFORMIN 500 MG TABLET PO SCH (08:16)
[2019-12-04] MEDS: FUROSEMIDE 40 MG/4 ML VIAL IVP SCH (08:16)
[2019-12-04] MEDS: NYSTATIN TOPICAL POWDER 15GM BOTTLE. TP SCH (08:22)
--- NOTE | 2019-12-04 09:49 | DISCH ---
HOME HEALTH DISCHARGE/MEDS DISCHARGE INFORMATION: Discharge Date: Dec 04, 2019 Final Diagnosis: Problems Medical Problems: (1) Acute bronchitis Status: Acute (2) Acute congestive heart failure Status: Acute (3) Cough Status: Acute (4) Hypoxia Status: Acute Condition on Discharge: Stable CODE STATUS: Code Status: DNR/DNI HOME HEALTH: Face to Face: I certify this patient is under my care and that I, or a nurse practitioner or physician's inventory control assistant working with me, had a face to face encounter that meets the physician face to face encounter requirements with this patient on 12/04/19. Medical Condition(s): CHF, DM, HTN Fdc For: Assess Cardiopulm Status, Assess & Educate Safety Physical Therapy For: Evalulation/Treatment Occupational Therapy For: Evaluation/Treatment Homebound Status Met By: Unsteady balance w/ amb,, Poor cognition POST DISCHARGE ORDERS: Activity Instructions for Disc: No restrictions Weight Bearing Status after Di: No restrictions DIET AFTER DISCHARGE: ADA CHECKS AFTER DISCHARGE: Checks after discharge: Check blood press - daily, Check blood sugar, ac/hs CERTIFICATION STATEMENT: Certification Statement: Based on the above finding, I certify that this patient is confined to the home and needs intermittent penitentiary care, physical therapy and/or speech therapy, or continues to need occupational therapy.~ This patient is under my care, and I have initiated the establishment of the plan of care.~ This patient will be followed by myself or a community physician who will periodically review the plan of care. DISCHARGE MEDICATIONS: Home Meds Active Scripts Azithromycin (AZITHROMYCIN TABLET) 250 Mg Tablet, 1 PKG PO UD for bronchitis, #6 TAB Take 2 tablets today and then one tablet every day thereafter for the next 4 days Prov:ZEN ESPAÑA DO 05/15/19 Reported Medications Vit B Comp/C/Fa/Iron/Vit E (VITAMIN B COMPLEX TABLET) 1 Each Tablet, 1 EACH PO DAILY for SUPPLEMENT, TAB 11/30/19 Trazodone Hcl (TRAZODONE HCL) 50 Mg Tablet, 1 TAB PO QHS for INSOMNIA, TAB 11/30/19 Pravastatin Sodium (PRAVASTATIN SODIUM) 20 Mg Tablet, 1 TAB PO QHS for HLD, TAB 11/30/19 Potassium Citrate (POTASSIUM CITRATE) 10 Meq Tablet.er, 2 TAB PO BID for SUPPLEMENT, TAB 11/30/19 Amlodipine Besylate (AMLODIPINE BESYLATE) 5 Mg Tablet, 1 TAB PO DAILY for HTN, TAB 11/30/19 Memantine Hcl (NAMENDA) 10 Mg Tablet, 0.5 TAB PO BID for DEMENTIA, TAB 11/30/19 Metformin Hcl (METFORMIN HCL) 500 Mg Tablet, 1 TAB PO DAILYWBKFT for DM, TAB 11/30/19 Melatonin (MELATONIN) 3 Mg Tab.rapdis, 1 TAB PO QHS for sleep, TAB 11/30/19 Furosemide (LASIX) 40 Mg Tablet, 1 TAB PO DAILY for EDEMA, TAB 11/30/19 Mv, Min #36/Iron,Carbonyl/Fa (GERITOL COMPLETE TABLET) 1 Each Tablet, 1 EACH PO DAILY for ANEMIA, TAB 11/30/19 Donepezil Hcl (DONEPEZIL HCL) 10 Mg Tablet, 1 TAB PO QHS for DEMENTIA, TAB 11/30/19 Celecoxib (CELEBREX) 100 Mg Capsule, 1 CAP PO 3X/WEEK for SACROLITIS, CAP EVERY WEDNESDAY, WEDNESDAY, WEDNESDAY AM 11/30/19 Zolpidem Tartrate (AMBIEN) 5 Mg Tablet, 5 MG PO PRN QHS PRN for INSOMNIA, TAB 11/30/19 Acetaminophen (ACETAMINOPHEN) 500 Mg Tablet, 1 TAB PO PRN Q4HRS PRN for pain or fever, TAB 11/30/19 Bupropion Hcl (WELLBUTRIN SR) 100 Mg Tablet.er, 1 TAB PO BID for for anxiety, TAB 11/30/19 Lactase (DAIRY RELIEF) 3,000 Unit Tablet, 3000 UNIT PO DAILY for lactase intolerance, TAB 11/30/19 Loperamide Hcl (LOPERAMIDE) 2 Mg Capsule, 2 MG PO PRN BID for diarrhea, CAP 11/30/19 Ipratropium/Albuterol Sulfate (DUONEB 0.5-3(2.5) MG/3 ML) 3 Ml Ampul.neb, 3 ML NEB QID PRN for COUGH, EACH 11/30/19 SARAH AGUIRRE MD Dec 04, 2019 09:49
--- NOTE | 2019-12-04 09:58 | DISCH ---
DISCHARGE ORDERS DISCHARGE DATE: Dec 04, 2019 FINAL DIAGNOSIS acute on chronic CHF, Alzheimers, HTN CONDITION AT DISCHARGE: Stable Code Status: DNR/DNI SNF STAY <30 DAYS: No HOSPICE: Yes HOSPICE EVALUATE & TREAT: Yes ADMIT TO LTAC: No POST DISCHARGE ORDERS: ACTIVITY ORDERS: No restrictions WEIGHT BEARING STATUS: No restrictions DIET AFTER DISCHARGE: ADA CHECKS AFTER DISCHARGE: CHECKS AFTER DISCHARGE: Check blood press - daily, Check blood sugar, ac/hs DISCHARGE MEDICATIONS: Home Meds Active Scripts Azithromycin (AZITHROMYCIN TABLET) 250 Mg Tablet, 1 PKG PO UD for bronchitis, #6 TAB Take 2 tablets today and then one tablet every day thereafter for the next 4 days Prov:ZEN ESPAÑA DO 05/15/19 Reported Medications Vit B Comp/C/Fa/Iron/Vit E (VITAMIN B COMPLEX TABLET) 1 Each Tablet, 1 EACH PO DAILY for SUPPLEMENT, TAB 11/30/19 Trazodone Hcl (TRAZODONE HCL) 50 Mg Tablet, 1 TAB PO QHS for INSOMNIA, TAB 11/30/19 Pravastatin Sodium (PRAVASTATIN SODIUM) 20 Mg Tablet, 1 TAB PO QHS for HLD, TAB 11/30/19 Potassium Citrate (POTASSIUM CITRATE) 10 Meq Tablet.er, 2 TAB PO BID for SUPPLEMENT, TAB 11/30/19 Amlodipine Besylate (AMLODIPINE BESYLATE) 5 Mg Tablet, 1 TAB PO DAILY for HTN, TAB 11/30/19 Memantine Hcl (NAMENDA) 10 Mg Tablet, 0.5 TAB PO BID for DEMENTIA, TAB 11/30/19 Metformin Hcl (METFORMIN HCL) 500 Mg Tablet, 1 TAB PO DAILYWBKFT for DM, TAB 11/30/19 Melatonin (MELATONIN) 3 Mg Tab.rapdis, 1 TAB PO QHS for sleep, TAB 11/30/19 Furosemide (LASIX) 40 Mg Tablet, 1 TAB PO DAILY for EDEMA, TAB 11/30/19 Mv, Min #36/Iron,Carbonyl/Fa (GERITOL COMPLETE TABLET) 1 Each Tablet, 1 EACH PO DAILY for ANEMIA, TAB 11/30/19 Donepezil Hcl (DONEPEZIL HCL) 10 Mg Tablet, 1 TAB PO QHS for DEMENTIA, TAB 11/30/19 Celecoxib (CELEBREX) 100 Mg Capsule, 1 CAP PO 3X/WEEK for SACROLITIS, CAP EVERY WEDNESDAY, WEDNESDAY, WEDNESDAY AM 11/30/19 Zolpidem Tartrate (AMBIEN) 5 Mg Tablet, 5 MG PO PRN QHS PRN for INSOMNIA, TAB 11/30/19 Acetaminophen (ACETAMINOPHEN) 500 Mg Tablet, 1 TAB PO PRN Q4HRS PRN for pain or fever, TAB 11/30/19 Bupropion Hcl (WELLBUTRIN SR) 100 Mg Tablet.er, 1 TAB PO BID for for anxiety, TAB 11/30/19 Lactase (DAIRY RELIEF) 3,000 Unit Tablet, 3000 UNIT PO DAILY for lactase intolerance, TAB 11/30/19 Loperamide Hcl (LOPERAMIDE) 2 Mg Capsule, 2 MG PO PRN BID for diarrhea, CAP 11/30/19 Ipratropium/Albuterol Sulfate (DUONEB 0.5-3(2.5) MG/3 ML) 3 Ml Ampul.neb, 3 ML NEB QID PRN for COUGH, EACH 11/30/19 SARAH AGUIRRE MD Dec 04, 2019 09:58
[2019-12-04 10:28] VITALS: BP 120/70
[2019-12-04 15:25] VITALS: BP 110/72
--- NOTE | 2019-12-05 18:30 | DS ---
DATE OF DISCHARGE: 12/04/2019 HOSPITAL COURSE: This pleasant 89-year-old female [facility] where she was having increased shortness of breath and dyspnea with oxygen saturations dropping down in the low 80s. The patient's COVID test was negative. The patient was thought to have some mild congestive heart failure. The patient was placed on some IV diuresis as well as some Decadron and Zithromax, made good progress overall. The patient's troponins were negative and her BNP was not terribly elevated as well, but her chest x-ray did show the possibility of some type of possible density in the left costophrenic angle. The patient made good progress with her combination of antibiotics and mild diuresis. The patient is also a diabetic and made good progress with that as well and she received breathing treatments as well. The patient was discharged back to the nursing facility. IMPRESSION: Acute respiratory distress, acute on top of chronic diastolic heart failure, moderate protein malnutrition, Alzheimer's dementia type and essential hypertension. SARAH AGUIRRE MD DR: GRETTA/kurt JOB#: [id number] / [id number]
== END 2019-12-04 17:40 | disposition hospice, home (50) | DRG 291 ==
LOC: ER 06:27 → 1 SOUTH 08:15
PROVIDERS: ADMIT Family Medicine; ATTEND Family Medicine
DX: I11.0 Hypertensive heart disease with heart failure (principal); J96.01 Acute respiratory failure with hypoxia; E44.0 Moderate protein-calorie malnutrition; I50.33 Acute on chronic diastolic (congestive) heart failure; J20.9 Acute bronchitis, unspecified; E11.9 Type 2 diabetes mellitus without complications; F02.80 Dementia in other diseases classified elsewhere, unspecified severity, without behavioral disturbance, psychotic disturbance, mood disturbance, and anxiety; G30.9 Alzheimer's disease, unspecified; J45.909 Unspecified asthma, uncomplicated; K44.9 Diaphragmatic hernia without obstruction or gangrene; R09.02 Hypoxemia; Z20.828 Contact with and (suspected) exposure to other viral communicable diseases; Z66 Do not resuscitate; F32.9 Major depressive disorder, single episode, unspecified; G47.00 Insomnia, unspecified; K21.9 Gastro-esophageal reflux disease without esophagitis; Z68.30 Body mass index [BMI] 30.0-30.9, adult
CPT/HCPCS: 36415; 51702; 71045; 80048; 80053; 81001; 83880; 84484; 85025; 87040; 87086; 93005; 94640; 94760; 96365; 96368; 96375; J0456; J0696; J1650; J1940; J2930; J7050; 99285-25